=== PATIENT | male | born 1955 | race Caucasian/White ===

== ENCOUNTER 2016-04-06 06:01 | Day surgery (SDC) | payer OTHER, SELFPAY | END 2016-04-06 13:48 | disposition home or self-care (01) | LOC: SDCH 06:01 | DX: H26.491 Other secondary cataract, right eye (principal); Z88.5 Allergy status to narcotic agent; E11.9 Type 2 diabetes mellitus without complications; Z79.4 Long term (current) use of insulin; I10 Essential (primary) hypertension; D64.9 Anemia, unspecified; Z79.82 Long term (current) use of aspirin; Z79.899 Other long term (current) drug therapy; F17.210 Nicotine dependence, cigarettes, uncomplicated ==